=== PATIENT | female | born 1940 | race Caucasian/White ===

== ENCOUNTER 2017-01-10 17:03 | Inpatient (IN) | payer MEDICARE ==
[~2017-01-10] VITALS: Ht 165.1 cm; Wt 54.4 kg
[~2017-01-10 17:03] MED LIST: CARDURA8 MG PO; CATAPRES0.1 MG PO; CATAPRES0.2 MG PO; COREG25 MG PO; KLONOPIN0.5 MG PO; KLOR-CON M2020 MEQ PO; LASIX40 MG PO; OMEPRAZOLE20 M1 PO; ROBAXIN-750750 MG PO; TALWIN NX1 TAB PO; VITAMIN B-121000 MC3 PO; VITAMIN D31000 UNIT PO; XANAX0.5 MG PO; ZOCOR20 MG PO
[2017-01-10 18:20] LABS: BASOPHILS 0.2 % (0-2); EOSINOPHILS 0.1 % (0-7); HEMATOCRIT 48.5 % (36.0-48.0); HEMOGLOBIN 15.7 g/dL (12-16); IMMATURE GRANULOCYTES 0.2 % (0-5); LYMPHOCYTES 38.3 % (15-50); MCH 34.4 pg (26.0-34.0); MCHC 32.4 g/dL (31.0-37.0); MCV 106.1 fL (80.0-100.0); MEAN PLATELET VOLUME 10.7 fL (7.4-10.4); MONOCYTES 5.1 % (2-11); NEUTROPHILS 56.1 % (40-80); PLATELET COUNT 202 10x3/uL (130-400); RBC 4.57 10x6/uL (4.00-5.40); RDW 15.9 % (11.5-14.5); WBC 17.2 10x3/uL (4.8-10.8)
[2017-01-10 18:44] LABS: APPEARANCE CLOUDY (CLEAR); BILIRUBIN NEGATIVE (NEGATIVE); COLOR YELLOW (YELLOW); GLUCOSE NEGATIVE (NEGATIVE); KETONE NEGATIVE (NEGATIVE); LEUKOCYTE ESTERASE 2+ (NEGATIVE); NITRITE POSITIVE (NEGATIVE); PROTEIN 1+ mg/dL (NEGATIVE); SPECIFIC GRAVITY 1.015 (1.005-1.020); UROBILINOGEN NORMAL (NORMAL)
[2017-01-10 18:45] LABS: BACTERIA MANY /hpf (NONE SEEN); EPITHELIAL CELLS 0-5 /hpf (0-5); RED CELLS - URINE 0-5 /hpf (0-5); WHITE CELLS - URINE >50 /hpf (0-5)
[2017-01-10 19:11] LABS: ANION GAP 13.2 mmol/L (8-16); BILIRUBIN - TOTAL 0.5 mg/dL (0.2-1.3); CALCIUM 9.5 mg/dL (8.5-10.1); CARBON DIOXIDE 30.1 mmol/L (21.0-32.0); CREATININE - SERUM 2.9 mg/dL (0.6-1.3); POTASSIUM - SERUM 4.3 mmol/L (3.5-5.1); PROTEIN - SERUM 7.3 g/dL (6.4-8.2)
[2017-01-11 01:21] VITALS: BP 129/60
[2017-01-11 04:00] VITALS: BP 133/74
--- NOTE | 2017-01-11 07:30 | NUR ---
REPORT RECEIVED FROM SANDING MACHINE BUFFER NURSE. CALL LIGHT IN REACH.
--- NOTE | 2017-01-11 08:05 | NUR ---
ASSESSMENT COMPLETED. FAMILY IN ROOM. BED ALARM ON. CALL LIGHT IN REACH. WILL CONTINUE WITH PLAN OF CARE.
[2017-01-11 08:42] VITALS: BP 153/58
--- NOTE | 2017-01-11 09:31 | NUR ---
MERREM IVPB PER ORDER. REPOSITIONED FOR COMFORT. AT BEDSIDE. BED ALARM ON. CALL LIGHT IN REACH.
--- NOTE | 2017-01-11 11:20 | NUR ---
NO NEEDS VOICED AT THIS TIME. IN ROOM. CALL LIGHT IN REACH.
[2017-01-11 12:52] VITALS: BP 133/68
--- NOTE | 2017-01-11 13:30 | NUR ---
MED LIST OBTAINED FROM . WILL PUT IN COMPUTER.
[2017-01-11 13:40] VITALS: Ht 165.1 cm; Wt 54.4 kg
--- NOTE | 2017-01-11 15:42 | NUR ---
RESTING WITH EYES CLOSED. RESP EVEN AND UNLABORED. CALL LIGHT IN REACH.
[2017-01-11] MEDS ORDERED: XANAX0.5 MG PO (15:53)
[2017-01-11] MEDS ORDERED: CELEXA10 MG PO (15:54)
[2017-01-11] MEDS ORDERED: ZYLOPRIM300 MG PO (15:54)
[2017-01-11] MEDS ORDERED: VITAMIN B-12100 MCG PO (15:55)
[2017-01-11] MEDS ORDERED: ARICEPT10 MG PO (15:55)
[2017-01-11] MEDS ORDERED: TRIMETHOPRIM100 MG PO (15:57)
--- NOTE | 2017-01-11 16:23 | NUR ---
ESTRADA MARQUEZ, WAS IN ROOM TO SPEAK WITH PATIENT.
[2017-01-11 16:39] VITALS: BP 131/54
--- NOTE | 2017-01-11 18:10 | NUR ---
DR YUEN BY TO SEE PATIENT AND NEW ORDERS RECEIVED.
[2017-01-11 20:00] VITALS: BP 104/70
--- NOTE | 2017-01-11 20:00 | NUR ---
ASSESSMENT PER FLOWSHEET. IV PATENT LEFT AC OF NS AT 75CC'S/HR. DAUGHTER AT BEDSIDE. PT REMAINS CONFUSED. SR UP X2 CALL LIGHT WITHIN REACH BED ALARM BED ON. INC URINE COMPLETE LINENS CHANGE DONE. TELM SHOWS SR WITH HR 60'S.
--- NOTE | 2017-01-11 20:00 | NUR ---
ASSESSMENT PER FLOWSHEET. IV PATENT LEFT AC OF NS AT 75CC'S/HR. TELM. SHOWS SR HR IN THE 70'S.INC. URINE CLEANED AND DRIED. STAGE 1 IN COCCYX BUTT PASTE APPLIED.
--- NOTE | 2017-01-11 21:00 | NUR ---
MEDS GIVEN CRUSHED IN APPLESAUCE. PT'S IV BEEPING AND BEEPING RESITED IV TO LEFT WRIST #24G X2 ATTEMPTS. RESUMED IV FLUIDS LEFT LEFT AC IV IN PLACE AND SALINE LOCKED. DAUGHTER LEFT PT UNATTENDED TO GO GET SOME CANDY. PT PULLS OFF TELEMTRY AND PULLS OUT LEFT WRIST IV. CONNECTED IV TO LEFT AC SITE AND RESUMED IV FLUIDS.
[2017-01-12] VITALS: BP 170/77
--- NOTE | 2017-01-12 02:30 | NUR ---
INC URINE AND FECES.COMPLETE BED BATH WITH LINENS CHANGED.
--- NOTE | 2017-01-12 03:30 | NUR ---
EYES CLOSED RESPIRATIONS WITH EASE AND UNLABORED.
[2017-01-12 05:41] LABS: ANION GAP 10.5 mmol/L (8-16); CALCIUM 8.4 mg/dL (8.5-10.1); CARBON DIOXIDE 26.1 mmol/L (21.0-32.0)
[2017-01-12 05:46] LABS: BASOPHILS 0.2 % (0-2); IMMATURE GRANULOCYTES 0.4 % (0-5); LYMPHOCYTES 46.4 % (15-50); MCH 34.2 pg (26.0-34.0); MCHC 32.5 g/dL (31.0-37.0); MCV 105.1 fL (80.0-100.0); MEAN PLATELET VOLUME 11.1 fL (7.4-10.4); MONOCYTES 6.2 % (2-11); NEUTROPHILS 45.8 % (40-80); PLATELET COUNT 174 10x3/uL (130-400); RDW 15.6 % (11.5-14.5)
[2017-01-12 05:47] LABS: CREATININE - SERUM 1.1 mg/dL (0.6-1.3); POTASSIUM - SERUM 3.6 mmol/L (3.5-5.1)
[2017-01-12 05:59] LABS: HEMATOCRIT 37.2 % (36.0-48.0); HEMOGLOBIN 12.1 g/dL (12-16); RBC 3.54 10x6/uL (4.00-5.40); WBC 12.4 10x3/uL (4.8-10.8)
--- NOTE | 2017-01-12 06:00 | NUR ---
CRUSHED MEDS AND GIVEN IN APPLESAUCE.
--- NOTE | 2017-01-12 06:30 | NUR ---
PT PULLS OUT IV LINENS CHANGED.
--- NOTE | 2017-01-12 07:27 | NUR ---
REPORT RECEIVED FROM CODING QUALITY COORDINATOR NURSE. CALL LIGHT IN REACH.
--- NOTE | 2017-01-12 08:50 | NUR ---
ASSESSMENT COMPLETED. COREG CRUSHED AND ADMINISTERED WITH APPLESAUCE. FREIGHT CAR LOADER IN ROOM FEEDING PATIENT. ALSO AT BEDSIDE. BED ALARM IS ON. SCDs TO BLE. CALL LIGHT IN REACH. WILL CONTINUE WITH PLAN OF CARE. WILL ALSO START IV AND PLACE VIZCAINO CATHETER.
[2017-01-12 08:58] VITALS: BP 133/53
--- NOTE | 2017-01-12 09:05 | NUR ---
IV RESITED TO LEFT FOREARM WITH 22 GA X1 STICK. NEW BAG OF NS INITIATED AND IV ABX INFUSING. WILL INSERT VIZCAINO CATH WITH ASSISTANCE FROM MANAGER CREDIT RISK.
--- NOTE | 2017-01-12 11:00 | NUR ---
16 FR VIZCAINO CATH INSERTED USING STERILE TECHNIQUE WITH 300 CC MILKY URINE. SAMPLE COLLECTED AND SENT TO LAB FOR TESTS.
[2017-01-12 11:56] LABS: CREATININE - URINE 77.9 mg/dL (30-125); PROTEIN - URINE 654.9 mg/dL (0.0-11.9)
--- NOTE | 2017-01-12 13:34 | NUR ---
TINA IN [facility] WITH ASSISTANCE FROM . CALL LIGHT IN REACH.
--- NOTE | 2017-01-12 15:36 | NUR ---
PT HERE FOR LEFT FOOT WOUND AND CELLULITIS FOR THIS VISIT. PT AOX1 SELF. RESP EVEN AND NONLABORED PT DENIES NEEDS AT THIS TIME SRX2 BED AT LOWEST SETTING CALL LIGHT WITHIN REACH WILL CONTINUE TO MONITOR
[2017-01-12 17:46] VITALS: BP 170/63
[2017-01-12 20:00] VITALS: BP 126/72
[2017-01-13] VITALS: BP 139/79
[2017-01-13 04:00] VITALS: BP 169/61
[2017-01-13 05:39] LABS: BASOPHILS 0.2 % (0-2); HEMATOCRIT 37.6 % (36.0-48.0); IMMATURE GRANULOCYTES 0.7 % (0-5); LYMPHOCYTES 57.2 % (15-50); MCH 33.5 pg (26.0-34.0); MCHC 31.9 g/dL (31.0-37.0); MEAN PLATELET VOLUME 10.6 fL (7.4-10.4); MONOCYTES 6.1 % (2-11); NEUTROPHILS 33.8 % (40-80); PLATELET COUNT 180 10x3/uL (130-400); RBC 3.58 10x6/uL (4.00-5.40); RDW 15.7 % (11.5-14.5)
--- NOTE | 2017-01-13 05:54 | NUR ---
PATIENT IN BED WITH EYES CLOSED RESTING QUIETLY. IV INTACT. CALL LIGHT WITHIN REACH.
[2017-01-13 05:59] LABS: ANION GAP 12.3 mmol/L (8-16); CALCIUM 8.3 mg/dL (8.5-10.1); CARBON DIOXIDE 27.8 mmol/L (21.0-32.0); CREATININE - SERUM 0.9 mg/dL (0.6-1.3); POTASSIUM - SERUM 3.1 mmol/L (3.5-5.1)
--- NOTE | 2017-01-13 06:23 | NUR ---
REVIEWED LAB WORK AND PT'S K+ IS AT 3.1. MIXED 40MEQ OF K+ IN APPLE JUICE FOR PT TO CONSUME
--- NOTE | 2017-01-13 07:14 | NUR ---
REPORT RECEIVED FROM SENIOR MERCHANDISER NURSE. CALL LIGHT IN REACH.
--- NOTE | 2017-01-13 08:00 | NUR ---
LYING IN BED,WITHOUT DISTRESS.CALL LIGHT IN REACH
--- NOTE | 2017-01-13 08:22 | NUR ---
ASSESSMENT COMPLETED. AM MEDS ADMINISTERED. CALL LIGHT IN REACH. BED ALARM ON. WILL CONTINUE WITH PLAN OF CARE.
[2017-01-13 08:32] VITALS: BP 189/99
--- NOTE | 2017-01-13 10:38 | NUR ---
MANNY LEDESMA. DAUGHTER IN ROOM. CALL LIGHT IN REACH.
[2017-01-13 12:09] VITALS: BP 180/66
--- NOTE | 2017-01-13 12:33 | NUR ---
TINA SALGADO. FAMILY AT BEDSIDE. CALL LIGHT IN REACH.
--- NOTE | 2017-01-13 13:29 | NUR ---
NUTRITION F/U CHART REVIEWED, PT VISIT. FAMILY AT BEDSIDE. PT WITH 25 TO 50% INTAKE RECENT MEALS. WILL CONTINUE TO MONITOR INTAKE, PT PROGRESS. RD FOLLOWING
--- NOTE | 2017-01-13 13:47 | NUR ---
Patient Name: MELQUIADES ROMAN Admission Status: ER Accout number: [id number] Admission Date: 01-10-2017 : 1940 Admission Diagnosis:SEPSIS, UNSPECIFIED ORGANISM Attending: RITESH YUEN Current LOS: 3 Anticipated DC Date: Planned Disposition: Home Primary Insurance: [employer]ARE ADV Discharge Planning Comments: CM met with patient and daughter (October) to assess discharge planning needs. Patient currently lives at home with her and her daughter October where she is a partial dependent. She uses O2 at night, but the daughter could not think where she gets it from. Patient has a walker and a shower chair. Patient does not use HH at this time but would not be opposed to it when she goes home. CM will continue to follow and assist as needed. PCP: Trixie Melendez on [facility] [place] [phone] Supervisor [employer]: Nohemy Lee * Is the patient Alert and Oriented? Yes 0 * How many steps to enter\exit or inside your home? 5 0 * PCP trixie 0 * Pharmacy [facility] on 0 * Preadmission Environment Home with Family 0 * ADLs Partial Dependent 0 * Partial ADLs (Assistance needed) Ambulation Bathing Dressing Medication Management 0 * Equipment Oxygen Rolling Walker Shower Chair 0 * List name and contact numbers for known caregivers / representatives who currently or will assist patient after discharge: october (daughter) [phone] 0 * Additional services required to return to the preadmission environment? Yes 0 * Can the patient safely return to the preadmission environment? Yes 0 * Has this patient been hospitalized within the prior 30 days at any hospital? No 0 Grand Total: 0
--- NOTE | 2017-01-13 14:25 | NUR ---
RESTING WITH EYES CLOSED. RESP EVEN AND UNLABORED. CALL LIGHT IN REACH.
[2017-01-13] MEDS ORDERED: MACROBID100 MG PO (15:54)
--- NOTE | 2017-01-13 16:50 | NUR ---
IV DC'D WITH TIP INTACT. VIZCAINO CATH DC'D WITH TIP INTACT.
[2017-01-13] MEDS ORDERED: ATARAX 25 MG TA25 MG PO (16:55)
[2017-01-13] MEDS ORDERED: OMNICEF300 MG PO (16:55)
--- NOTE | 2017-01-13 18:37 | NUR ---
DC'D TO VEHICLE VIA WC WITH .
== END 2017-01-13 18:37 | disposition home or self-care (01) | DRG 872 ==
LOC: D.ER 17:03 → D.MS 22:14
PROVIDERS: Emergency Medicine; Internal Medicine Nephrology; ADMIT Family Medicine
DX: A41.9 Sepsis, unspecified organism (principal); N39.0 Urinary tract infection, site not specified; N17.9 Acute kidney failure, unspecified; I10 Essential (primary) hypertension; E86.0 Dehydration; J44.9 Chronic obstructive pulmonary disease, unspecified; F03.90 Unspecified dementia, unspecified severity, without behavioral disturbance, psychotic disturbance, mood disturbance, and anxiety; B96.20 Unspecified Escherichia coli [E. coli] as the cause of diseases classified elsewhere

== ENCOUNTER 2019-11-12 04:42 | Inpatient (IN) | payer MEDICARE ==
[2019-11-12] VITALS (7 sets, daily range): BP systolic 105–160; BP diastolic 57–78; BMI 23.1
[~2019-11-12] VITALS: Ht 165.1 cm; Wt 63.0 kg
[~2019-11-12 04:42] MED LIST changes: +ARICEPT10 MG PO; +ATARAX 25 MG TA25 MG PO; +CELEXA10 MG PO; +MACROBID100 MG PO; +OMNICEF300 MG PO; +TRIMETHOPRIM100 MG PO; +VITAMIN B-12100 MCG PO; +ZYLOPRIM300 MG PO
[2019-11-12] MEDS ORDERED: CARDURA8 MG PO (04:51)
[2019-11-12] MEDS ORDERED: TRAZODONE HCL150 MG PO (04:52)
[2019-11-12] MEDS ORDERED: K-TAB10 MEQ PO (04:52)
[2019-11-12 05:21] LABS: APTT 26.5 SECONDS (22.8-39.4); INR 0.99 (0.85-1.17); PROTIME 13.1 SECONDS (11.6-15.0)
[2019-11-12 05:36] LABS: BASOPHILS 0.3 % (0-2); EOSINOPHILS 2.8 % (0-7); HEMATOCRIT 36.7 % (36.0-48.0); HEMOGLOBIN 11.8 g/dL (12-16); IMMATURE GRANULOCYTES 0.2 % (0-5); LYMPHOCYTES 49.4 % (15-50); MCH 35.1 pg (26.0-34.0); MCHC 32.2 g/dL (31.0-37.0); MCV 109.2 fL (80.0-100.0); MEAN PLATELET VOLUME 10.2 fL (7.4-10.4); MONOCYTES 4.2 % (2-11); NEUTROPHILS 43.1 % (40-80); PLATELET COUNT 241 10x3/uL (130-400); RBC 3.36 10x6/uL (4.00-5.40); RDW 14.5 % (11.5-14.5); WBC 9.4 10x3/uL (4.8-10.8)
[2019-11-12 05:58] LABS: ALBUMIN 3.4 g/dL (3.4-5.0); ALKALINE PHOSPHATASE 74 U/L (30-120); ALT (SGPT) 19 U/L (10-68); BILIRUBIN - TOTAL 0.31 mg/dL (0.2-1.3); CALC OSMOLALITY 278 mosm/kg (275-300); CALCIUM 8.9 mg/dL (8.5-10.1); CARBON DIOXIDE 29.1 mmol/L (21.0-32.0); CHLORIDE - SERUM 102 mmol/L (98-107); CREATINE KINASE 97 UL (21-215); CREATININE - SERUM 1.5 mg/dL (0.6-1.3); GLUCOSE 116 mg/dL (74-106); POTASSIUM - SERUM 3.7 mmol/L (3.5-5.1); SODIUM 138 mmol/L (136-145); TROPONIN-I < 0.017 ng/mL (0.000-0.060); UREA NITROGEN 17 mg/dL (7-18); eGFR NON AFRICAN AMERICAN 35 mL/min (90-120)
[2019-11-12 06:34] LABS: BILIRUBIN NEGATIVE (NEGATIVE); GLUCOSE NEGATIVE (NEGATIVE); KETONE NEGATIVE (NEGATIVE); NITRITE NEGATIVE (NEGATIVE); SPECIFIC GRAVITY 1.005 (1.005-1.020); UROBILINOGEN NORMAL (NORMAL)
[2019-11-12 06:35] LABS: EPITHELIAL CELLS 0-5 /hpf (0-5); RED CELLS - URINE 0-5 /hpf (0-5); WHITE CELLS - URINE >50 /hpf (NEGATIVE)
[2019-11-12 06:36] LABS: BACTERIA MANY /hpf (NEGATIVE)
--- NOTE | 2019-11-12 06:43 | NUR ---
c-COLLAR REMOVED PER MD ORDER, C-SPINE IS NORMAL
--- NOTE | 2019-11-12 06:53 | NUR ---
REPORT GIVEN TO CHON
--- NOTE | 2019-11-12 08:06 | NUR ---
PATIENT ADMITTED TO ROOM 2236. ADMISSION COMPLETE. DAUGHTER AT BEDSIDE. FALL PRECAUTIONS IN PLACE. WILL CONTINUE TO MONITOR.
--- NOTE | 2019-11-12 12:17 | NUR ---
RESTING IN BED. DENIES NEEDS. WILL CONTINUE TO MONITOR.
--- NOTE | 2019-11-12 12:40 | NUR ---
PATIENT'S DAUGHTER GOT DRIED BLOOD OFF PATIENT'S LEFT EAR WITH WASH CLOTH. PATIENT'S EAR NOW BLEEDING. SMALL CUT NOTED TO EAR. CLEANED AND CLOSED WITH SMALL STERI STRIP.
--- NOTE | 2019-11-12 20:15 | NUR ---
TO SURGERY VIA BED
--- NOTE | 2019-11-12 21:59 | NUR ---
WHEN POSITIONED ON HANA TABLE X-RAYS REVEALED HIGHER FRACTURE, IM NAILING TURNED HEMIARTHROPLASTY OF LEFT HIP, DR MORGAN TALKED TO PATIENTS FAMILY AND OBTAINED CONSENT, ANUSHA.
--- NOTE | 2019-11-12 23:35 | NUR ---
BACK FROM SURGERY, AROUSES EASILY, DRESSIGN TO LEFT UPPER THIGH C/D/I, GOOD PEDAL PULSES NOTED, DAUGHTER AT BEDSIDE, CALL LIGHT IN REACH
[2019-11-13 05:25] VITALS: BP 109/58
--- NOTE | 2019-11-13 07:17 | OP ---
PATIENT NAME: MELQUIADES ESPOSITO MEDICAL RECORD: [id number] :40 LOCATION:D.MS [id number] ADMISSION DATE:11/12/19 SURGEON: CUONG MORGAN DO DATE OF OPERATION: 11/12/2019 PROCEDURE PERFORMED: Left stewart hip arthroplasty. PREOPERATIVE DIAGNOSIS: Left femoral neck fracture. POSTOPERATIVE DIAGNOSIS: Left femoral neck fracture. INDICATIONS: Ms. Esposito is a 79-year-old demented female who showed up at the ER this morning, initially with x-rays taken that initially, we thought that it was an intertrochanteric fracture, planned to do an IM nail. Once I got her on the table and tried to reduce the fracture, I saw the femoral neck fracture. I then called her daughter and informed that we will be changing the procedure and do a stewart hip. She was okay with that. She was aware of the risks including infection, bleeding, damage to nerves, vessels, need for further surgery, fracture, fracture, continued pain, blood clots, even , failure of implants and her daughter had signed the consent. SURGEON: Cuong Morgan DO DESCRIPTION OF PROCEDURE: The patient was taken to the operative suite, laid in supine position, given anesthetic and sedated and intubated. She was then given a gram of vancomycin preoperatively and 1 gram of TXA. SHE HAS SEVERAL ALLERGIES. She was then placed on the [place] table and positioned and the left hip was prepped and draped in sterile fashion. A timeout was performed and everyone was in agreeance with correct side, site, patient and procedure and at that point, made an incision over the tensor fascia shanel muscle. Careful dissection was made down to the muscle and fascia, taken down to anterior muscle belly posteriorly, then we opened up rectus interval. The rectus was then taken medially and then tensor fascia shanel laterally and encountered the ascending branch of lateral femoral circumflex, tied them off and coagulated them. I then opened the capsule and the femoral neck that was there. It was more of a mid neck fracture and I then made another cut at the base of the femoral neck and then removed that and removed the head then cleaned up around the capsule. I then exposed the femur, used a canal finder and a cookie cutter. I then started broaching up to a 10. 10, I thought, fit well, but it was a little loose. I then broached to 11, it fit very well and then reduced it with a -6, we need to bring out a little bit longer and decided to go a standard head, removed the 11 stem, put in the 11 Taperloc stem down, fit very well and snugly and then put a bipolar head on with the standard neck length. This was reduced and fit very well and no fracture is seen in the femur distally and had equal leg lengths to the right leg. I then irrigated with 10% povidone iodine and 500 mL of normal saline solution and irrigated that out with a liter of normal saline and then put in Jayla powder and vancomycin powder. I then closed the tensor fascia shanel fascia with [id number] #1 Vicryl in a running locking stitch. I then closed the skin with 2-0 Vicryl in inverted interrupted fashion and 4-0 Monocryl running on the skin and Prineo glue placed on the skin. Telfa and Tegaderm was placed on the skin and she was then awakened and taken to recovery in stable condition. Blood loss approximately 100 mL. COMPLICATIONS: None. OPERATIVE REPORT [id number] MELQUIADES ESPOSITO TRANSINT:[id number] Voice Confirmation ID: [id number] DOCUMENT ID: [id number] CUONG MORGAN DO at 0717 CC: [id number] DICTATION DATE: 11/12/19 2256 HONEY LIQUEFIER: 11/13/19 0431 ADM IN [facility] [address] [place] [address]
[2019-11-13 07:41] VITALS: BP 143/58
--- NOTE | 2019-11-13 07:46 | NUR ---
ALERT AND ORIENTED TO SELF. LUNGS CLEAR BILATERALLY. HEART SOUNDS S1 AND S2 HEARD IN ALL SCOTT. BOWEL SOUNDS ACTIVE X 4. IV TO RIGHT HAND PATENT WITHOUT REDNESS. DRSG TO LEFT HIP C/D/I. DENIES NEEDS. BED LOW. BED ALARM ON. DAUGHTER AT BEDSIDE. CALL COOK AND PERSONAL ITEMS IN REACH. WILL CONTINUE TO MONITOR.
[2019-11-13 10:33] LABS: BASOPHILS 0 % (0-2); EOSINOPHILS 0 % (0-7); HEMATOCRIT 29.8 % (36.0-48.0); IMMATURE GRANULOCYTES 0.3 % (0-5); LYMPHOCYTES 16.2 % (15-50); MCH 35.1 pg (26.0-34.0); MCHC 31.5 g/dL (31.0-37.0); MEAN PLATELET VOLUME 10.1 fL (7.4-10.4); MONOCYTES 4.4 % (2-11); NEUTROPHILS 79.1 % (40-80); PLATELET COUNT 202 10x3/uL (130-400); RDW 14.7 % (11.5-14.5); WBC 11.5 10x3/uL (4.8-10.8)
[2019-11-13 10:44] LABS: HEMOGLOBIN 9.4 g/dL (12-16); MCV 111.2 fL (80.0-100.0); RBC 2.68 10x6/uL (4.00-5.40)
[2019-11-13 10:48] LABS: ALBUMIN 2.8 g/dL (3.4-5.0); BILIRUBIN - TOTAL 0.43 mg/dL (0.2-1.3); CARBON DIOXIDE 26.5 mmol/L (21.0-32.0); PHOSPHOROUS 3.2 mg/dL (2.5-4.9); PROTEIN - SERUM 5.6 g/dL (6.4-8.2)
[2019-11-13 10:49] LABS: CREATININE - SERUM 1.1 mg/dL (0.6-1.3); POTASSIUM - SERUM 4.5 mmol/L (3.5-5.1)
[2019-11-13 12:42] VITALS: BP 102/43
[2019-11-13 14:42] VITALS: Ht 165.1 cm; Wt 63.0 kg
[2019-11-13 16:00] VITALS: BP 106/45
--- NOTE | 2019-11-13 18:04 | NUR ---
RESTING IN BED. FAMILY MEMBER AT BEDSIDE. DENIES NEEDS. WILL CONTINUE TO MONITOR.
[2019-11-13 20:00] VITALS: BP 102/75
--- NOTE | 2019-11-13 20:45 | NUR ---
LYING IN BED. CONFUSED, ORIENTED TO SELF ONLY. VISUAL HALLUCINATIONS NOTED, PT PICKING AT AIR. DAUGHTER AT BEDSIDE. RESP EVEN AND NONLABORED. TELEMETRY SHOWS SR WITH RATE OF 61. VIZCAINO CATH PATENT AND DRAINING CLOUDY YELLOW URINE. LACERATION NOTED TO LT EAR AND LT FOREHEAD. SCDS IN USE BILAT. DRSG TO LT HIP IS C/D/I. 1/2 NS @ 75 MLHR INFUSING IN RT HAND. SR ELEVATEDX 2. CL IN REACH.
--- NOTE | 2019-11-13 21:45 | NUR ---
MEDICATED WITH TYLENOL FOR C/O PAIN IN LT HIP. CL IN REACH.
--- NOTE | 2019-11-14 02:00 | NUR ---
REPOSITIONED IN BED. DAUGHTER AT BEDSIDE. PT STILL CONFUSED. BED ALARM ON. CL IN REACH.
[2019-11-14 04:00] VITALS: BP 128/60
[2019-11-14 06:20] LABS: BASOPHILS 0.1 % (0-2); EOSINOPHILS 0.2 % (0-7); HEMATOCRIT 26.9 % (36.0-48.0); HEMOGLOBIN 8.3 g/dL (12-16); IMMATURE GRANULOCYTES 0.2 % (0-5); LYMPHOCYTES 38.7 % (15-50); MCH 34.7 pg (26.0-34.0); MCHC 30.9 g/dL (31.0-37.0); MCV 112.6 fL (80.0-100.0); MEAN PLATELET VOLUME 10.3 fL (7.4-10.4); MONOCYTES 7.2 % (2-11); NEUTROPHILS 53.6 % (40-80); PLATELET COUNT 178 10x3/uL (130-400); RBC 2.39 10x6/uL (4.00-5.40); RDW 14.7 % (11.5-14.5)
[2019-11-14 06:26] LABS: ANION GAP 12.1 mmol/L (8-16); CALCIUM 7.4 mg/dL (8.5-10.1); CARBON DIOXIDE 26.3 mmol/L (21.0-32.0); MAGNESIUM - SERUM 1.9 mg/dL (1.8-2.4); PHOSPHOROUS 3.4 mg/dL (2.5-4.9); POTASSIUM - SERUM 4.4 mmol/L (3.5-5.1)
[2019-11-14 06:27] LABS: CREATININE - SERUM 1.5 mg/dL (0.6-1.3)
--- NOTE | 2019-11-14 07:52 | NUR ---
ALERT AND ORIENTED TO SELF. LUNGS CLEAR BILATERALLY. HEART SOUNDS S1 AND S2 HEARD IN ALL SCOTT. BOWEL SOUNDS ACTIVE X 4. DRSG TO LEFT HIP C/D/I. IV TO RIGHT HAND PATENT WITHOUT REDNESS. DAUGHTER AT BEDSIDE DENIES NEEDS. BED LOW. FALL PRECAUTIONS IN PLACE. CALL COOK AND PERSONAL ITEMS IN REACH. WILL CONTINUE TO MONITOR.
[2019-11-14 09:15] VITALS: BP 117/48
--- NOTE | 2019-11-14 10:07 | NUR ---
DAUGHTER STATES PATIENT CANNOT HAVE TYLENOL#3 D/T ALLERGY TO CODEINE. MESSAGE LEFT FOR DR MORGAN TO CALL BACK.
--- NOTE | 2019-11-14 11:41 | NUR ---
PATIENT SLEEPING. WILL CONTINUE TO MONITOR.
[2019-11-14 12:36] VITALS: BP 108/52
[2019-11-14 17:01] VITALS: BP 123/57
[2019-11-14 20:00] VITALS: BP 120/50
--- NOTE | 2019-11-14 20:50 | NUR ---
LYING IN BED. CONFUSED. PICKING AT LINES. DAUGHTER AT BEDSIDE. RESTLESS. DRSG NOTED TO LT HIP IS C/D/I. BRUISES NOTED TO LT FOREHEAD, LT SHOULDER AND LT HIP. VIZCAINO CATH PATENT AND DRAINING CLOUDY YELLOW URINE. TELEMETRY SHOWS SR WITH RATE OF 67 WITH OCC PVC. 1/2 NS @ 30 MLHR INFUSING IN RT HAND. SCDS IN USE BILAT. SR ELEVATED X2. CL IN REACH. ROGERIO ALARM ON.
--- NOTE | 2019-11-15 01:03 | NUR ---
LYING IN BED WITH EYES PARTIALLY OPEN. HAS BEEN RESTLESS TONIGHT. NO DISTRESS. RESP NONLABORED. O2 IN USE. CL IN REACH. ROGERIO ALARM ON.
--- NOTE | 2019-11-15 03:53 | NUR ---
RESTING WITH EYES CLOSED. RESP SHALLOW, NONLABORED. NO DISTRESS. CL IN REACH.
[2019-11-15 04:00] VITALS: BP 121/58
[2019-11-15 05:47] LABS: HEMATOCRIT 24.4 % (36.0-48.0); HEMOGLOBIN 7.7 g/dL (12-16); MCH 35.2 pg (26.0-34.0); MCHC 31.6 g/dL (31.0-37.0); MCV 111.4 fL (80.0-100.0); MEAN PLATELET VOLUME 10.6 fL (7.4-10.4); PLATELET COUNT 172 10x3/uL (130-400); RBC 2.19 10x6/uL (4.00-5.40); RDW 14.9 % (11.5-14.5); WBC 10.9 10x3/uL (4.8-10.8)
[2019-11-15 05:56] LABS: ANION GAP 10.1 mmol/L (8-16); CALCIUM 8.2 mg/dL (8.5-10.1); CARBON DIOXIDE 27.2 mmol/L (21.0-32.0); CREATININE - SERUM 1.6 mg/dL (0.6-1.3); PHOSPHOROUS 3.4 mg/dL (2.5-4.9); POTASSIUM - SERUM 4.3 mmol/L (3.5-5.1)
--- NOTE | 2019-11-15 06:15 | NUR ---
RESTED BETTER THIS SHIFT. DAUGHTER AT BEDSIDE. NO DISTRESS. CL IN REACH.
[2019-11-15 06:56] LABS: ANISOCYTOSIS OCC; LYMPHOCYTES 33 % (15-50); MONOCYTES 2 % (2-11); NEUTROPHILS 65 % (40-80); PLATELET ESTIMATE NORMAL
[2019-11-15 06:57] LABS: TARGET CELLS OCC
[2019-11-15 09:13] VITALS: BP 110/38
--- NOTE | 2019-11-15 10:34 | NUR ---
PT DAUGHTER AT BEDSIDE. REQUESTING WE CONTINUE TO LET PT SLEEP AND HOLD MEDS FOR NOW. CONCERNED ABOUT PT BP. RETAKEN AND NEW READING IS 86/53. WILL CONTINUE TO MONITOR.
[2019-11-15 11:47] VITALS: BP 151/56
[2019-11-15 15:42] VITALS: BP 153/51
--- NOTE | 2019-11-15 16:08 | NUR ---
Nutrition Follow-up: Diet: Regular PO intake: 25-50% x last 3 meals Last BM: none since admit. WT: 139# (11/13/19) Meds noted: NS@75. Labs noted: BUN 29(H), Cr 1.6(H), GFR 33(L) Continue current diet. Will add Ensure TID with meals. RD following.
--- NOTE | 2019-11-15 18:43 | NUR ---
PRBC'S STARTED WITH NO S/S OF REACTION NOTED
[2019-11-15 20:00] VITALS: BP 101/51
[2019-11-16] VITALS: BP 145/40
[2019-11-16 04:00] VITALS: BP 185/64
[2019-11-16 06:33] LABS: BASOPHILS 0.2 % (0-2); EOSINOPHILS 0.7 % (0-7); HEMATOCRIT 28.5 % (36.0-48.0); HEMOGLOBIN 8.9 g/dL (12-16); IMMATURE GRANULOCYTES 0.3 % (0-5); LYMPHOCYTES 40.7 % (15-50); MCH 32.8 pg (26.0-34.0); MCHC 31.2 g/dL (31.0-37.0); MEAN PLATELET VOLUME 10.1 fL (7.4-10.4); MONOCYTES 7.2 % (2-11); NEUTROPHILS 50.9 % (40-80); PLATELET COUNT 174 10x3/uL (130-400); RDW 19.5 % (11.5-14.5); WBC 11.3 10x3/uL (4.8-10.8)
[2019-11-16 06:34] LABS: MCV 105.2 fL (80.0-100.0); RBC 2.71 10x6/uL (4.00-5.40)
[2019-11-16 06:57] LABS: CALCIUM 7.8 mg/dL (8.5-10.1); CARBON DIOXIDE 27.2 mmol/L (21.0-32.0); CREATININE - SERUM 1.3 mg/dL (0.6-1.3); PHOSPHOROUS 2.8 mg/dL (2.5-4.9); POTASSIUM - SERUM 4.2 mmol/L (3.5-5.1); VANCOMYCIN - RANDOM 20.5 ug/mL (10.0-20.0)
[2019-11-16 09:16] VITALS: BP 118/48
[2019-11-16] MEDS ORDERED: PRIMSOL50 MG/5 ML PO (11:15)
[2019-11-16 13:17] VITALS: BP 141/57
--- NOTE | 2019-11-16 16:40 | MORECARE ---
CASE MANAGEMENT DISCHARGE SUMMARY PATIENT: MELQUIADES ROMAN S UNIT: [id number] ADM DATE: 11/12/19 AGE: 79 : 40 SEX: F ROOM/BED: D.2236 AUTHOR: MEGHAN WONG PHYSICIAN: REFERRING PHYSICIAN: GULSHAN GONCALVES MD DATE OF SERVICE: 11/16/19 Discharge Plan Patient Name: MELQUIADES ROMAN [facility] [facility] 1940 Planned Disposition: Home with Hospice Anticipated Discharge Date: Discharge Date: Expected LOS: Initial Reviewer: [email or web address] Initial Review Date: 11/12/2019 Generated: 11/16/19 5:39 pm DCPIA - Discharge Planning Initial Assessment Updated by [email or web address]: Lara Robertson on 11/16/19 4:38 pm * Is the patient Alert and Oriented? No * PCP SORRELS * Pharmacy [facility] * Preadmission Environment Home with Family * ADLs Partial Dependent * Partial ADLs (Assistance needed) Ambulation Bathing Dressing Eating Medication Management Toileting Transfers * List name and contact numbers for known caregivers / representatives who currently or will assist patient after discharge: LEELEE ASH - DAUGHTER - [phone] TARA ROMAN - SPOUSE - [phone] * Verbal permission to speak to the caregivers and representatives has been obtained from the patient. Yes * Community resources currently utilized None * Additional services required to return to the preadmission environment? No * Can the patient safely return to the preadmission environment? Yes * Has this patient been hospitalized within the prior 30 days at any hospital? No Patient Name: MELQUIADES ROMAN Page [id number] at 1640 All edits/amendments must be made on the electronic document DICTATION DATE: 11/16/19 1639 CHIEF LIBRARIAN BRANCH: MIKAYLA 11/16/19 1639 RPT#: [id number] DC DATE: STATUS: ADM IN [facility] [address] [place] [address] END OF REPORT
[2019-11-16 16:50] VITALS: BP 110/64; BP 141/59
--- NOTE | 2019-11-16 16:52 | MORECARE ---
CASE MANAGEMENT DISCHARGE SUMMARY PATIENT: MELQUIADES ROMAN UNIT: [id number] ADM DATE: 11/12/19 AGE: 79 : 40 SEX: F ROOM/BED: D.2236 AUTHOR: MARVINDOC PHYSICIAN: REFERRING PHYSICIAN: GULSHAN GONCALVES MD DATE OF SERVICE: 11/16/19 Discharge Plan Patient Name: MELQUIADES ROMAN Facility: [facility]:[place] : 1940 Planned Disposition: Home with Hospice Anticipated Discharge Date: Discharge Date: Expected LOS: Initial Reviewer: [email or web address] Initial Review Date: 11/12/2019 Generated: 11/16/19 5:52 pm Comments DCP- Discharge Planning Updated by [email or web address]: Lara Robertson on 11/16/19 3:[address] Patient Name: MELQUIADES ROMAN Admission Status: ER Accout number: [id number] Admission Date: 11-12-2019 : 1940 Admission Diagnosis:DISPLACED INTERTROCHANTERIC FRACTURE OF LEFT FEMUR, INI Attending: GULSHAN GONCALVES Current LOS: 4 Anticipated DC Date: Planned Disposition: Home with Hospice Primary Insurance: [employer] ADV Discharge Planning Comments: CM met with patient's daughter at bedside to complete initial dc planning assessment. CM educated patient on the CM role and verbal consent given by patient to complete assessment. Patient lives at home with family. Patient's spouse and two daughters live with her. Patient was partially dependent upon admission was able to ambulate but with her dementia had to have assistance with other ADL'S. At discharge patient's family plans for her to return home and feels this is a safe discharge. CM discussed availability of home health, rehab services, and medical equipment. CM spoke to daughter regarding hospice v/s home health. Daughter stated that her father was speaking to the insurance company to see what they can provide / what is covered. Family doesn't want patient to go to any facility that they can not stay with her. Patient may require ambulance transfer home since she isn't getting up. Uncertain of known discharge needs at this time. CM will continue to follow and will assist as needed with dc plans/needs. Vocational Nurse: Lara Robertson DCPIA - Discharge Planning Initial Assessment Updated by [id number]: Lara Robertson on 11/16/19 4:38 pm * Is the patient Alert and Oriented? No * PCP SORRELS * Pharmacy [facility] * Preadmission Environment Home with Family * ADLs Partial Dependent * Partial ADLs (Assistance needed) Ambulation Bathing Dressing Eating Medication Management Toileting Transfers * List name and contact numbers for known caregivers / representatives who currently or will assist patient after discharge: LEELEE ASH - DAUGHTER - [phone] TARA ROMAN - SPOUSE - [phone] * Verbal permission to speak to the caregivers and representatives has been obtained from the patient. Yes * Community resources currently utilized None * Additional services required to return to the preadmission environment? No * Can the patient safely return to the preadmission environment? Yes * Has this patient been hospitalized within the prior 30 days at any hospital? No Last DP export: 11/16/19 3:40 pm Patient Name: MELQUIADES ROMAN Page [id number] at 1652 All edits/amendments must be made on the electronic document DICTATION DATE: 11/16/191651 NC MACHINIST: MIKAYLA 11/16/191651 RPT#: [id number] DC DATE: STATUS: ADM IN [facility] [address] [place] [address] END OF REPORT
[2019-11-16 20:00] VITALS: BP 197/59
[2019-11-17] VITALS: BP 154/47
[2019-11-17 04:00] VITALS: BP 142/54
[2019-11-17 06:52] LABS: BASOPHILS 0.2 % (0-2); HEMATOCRIT 29.9 % (36.0-48.0); HEMOGLOBIN 9.4 g/dL (12-16); IMMATURE GRANULOCYTES 0.4 % (0-5); LYMPHOCYTES 39.4 % (15-50); MCH 33.2 pg (26.0-34.0); MCHC 31.4 g/dL (31.0-37.0); MCV 105.7 fL (80.0-100.0); MEAN PLATELET VOLUME 10.5 fL (7.4-10.4); MONOCYTES 7.6 % (2-11); NEUTROPHILS 51.4 % (40-80); PLATELET COUNT 201 10x3/uL (130-400); RBC 2.83 10x6/uL (4.00-5.40); RDW 18.4 % (11.5-14.5); WBC 10.5 10x3/uL (4.8-10.8)
[2019-11-17 06:56] LABS: ANION GAP 7.9 mmol/L (8-16); CARBON DIOXIDE 27.1 mmol/L (21.0-32.0); CREATININE - SERUM 1.3 mg/dL (0.6-1.3); MAGNESIUM - SERUM 2.1 mg/dL (1.8-2.4); PHOSPHOROUS 2.8 mg/dL (2.5-4.9)
[2019-11-17 09:02] VITALS: BP 132/46
--- NOTE | 2019-11-17 09:06 | NUR ---
PT CONFUSED. BREATH SOUNDS CLEAR BILAT. IV TO RIGHT HAND, PATENT, DRESSING CDI. DRESSING TO LEFT HIP. DAUGHTER AT BEDSIDE. BED LOW, CALL LIGHT IN REACH. NO OTHER NEEDS AT THIS TIME.
[2019-11-17 12:41] VITALS: BP 157/56
[2019-11-17 17:09] VITALS: BP 152/47
[2019-11-17 21:20] VITALS: BP 149/37
[2019-11-18 04:00] VITALS: BP 161/56
[2019-11-18 05:05] LABS: BASOPHILS 0.3 % (0-2); EOSINOPHILS 0.7 % (0-7); HEMOGLOBIN 9.1 g/dL (12-16); IMMATURE GRANULOCYTES 0.5 % (0-5); LYMPHOCYTES 42.4 % (15-50); MCH 33.1 pg (26.0-34.0); MCHC 31.4 g/dL (31.0-37.0); MCV 105.5 fL (80.0-100.0); MEAN PLATELET VOLUME 10.8 fL (7.4-10.4); MONOCYTES 7.5 % (2-11); NEUTROPHILS 48.6 % (40-80); PLATELET COUNT 214 10x3/uL (130-400); RBC 2.75 10x6/uL (4.00-5.40); RDW 17.6 % (11.5-14.5)
[2019-11-18 05:25] LABS: ANION GAP 10.9 mmol/L (8-16); CALCIUM 8.1 mg/dL (8.5-10.1); CARBON DIOXIDE 27.5 mmol/L (21.0-32.0); CREATININE - SERUM 1.2 mg/dL (0.6-1.3); MAGNESIUM - SERUM 2.2 mg/dL (1.8-2.4); POTASSIUM - SERUM 4.4 mmol/L (3.5-5.1); VANCOMYCIN - RANDOM 24.9 ug/mL (10.0-20.0)
[2019-11-18 05:35] LABS: PHOSPHOROUS 3.7 mg/dL (2.5-4.9)
--- NOTE | 2019-11-18 08:07 | NUR ---
ALERT AND ORIENTED TO SELF. LUNGS CLEAR BILATERALLY. HEART SOUNDS S1 AND S2 HEARD IN ALL SCOTT. BOWEL SOUNDS ACTIVE X 4. IV TO RFA PATENT WITHOUT REDNESS. BED LOW. FALL PRECAUTIONS IN PLACE. CALL COOK AND PERSONAL ITEMS IN REACH. WILL CONTINUE TO MONITOR.
[2019-11-18 09:12] VITALS: BP 152/51
--- NOTE | 2019-11-18 09:49 | NUR ---
DRSG CHANGED TO LEFT HIP. SURGICAL SITE C/D/I WITH NO S/SX INFECTION OR REDNESS. MEPILEX AG APPLIED.
--- NOTE | 2019-11-18 11:36 | NUR ---
Rehab Prescreening Consult recieved and the chart has been reviewed. She is [employer] managed Medicare and will require a preauth. She will need a PT and an OT eval. Currently the [facility] has no available female beds. Gianna Sherman RN Clinical Liaison, Rehab,
[2019-11-18 12:38] VITALS: BP 139/64
--- NOTE | 2019-11-18 13:05 | NUR ---
PATIENT SLEEPING. DAUGHTER AT BEDSIDE DENIES NEEDS. WILL CONTINUE TO MONITOR.
--- NOTE | 2019-11-18 13:40 | NUR ---
PATIENT LAURA AREA CLEANED AND NEW PUREWICK PLACED ON PATIENT.
--- NOTE | 2019-11-18 15:01 | NUR ---
OT NOTE: PT REQUIRED MOD/MAX A FOR SIT TO STAND . PT COMPLETED SIDE STEPS WITH MOD/MAX X2. PT COMPLETED UB/LB HYGIENE TASKS WITH MAX A. PT IS CONFUSED. [id number] THANK YOU,NIALL WYNNE
--- NOTE | 2019-11-18 16:46 | MORECARE ---
CASE MANAGEMENT DISCHARGE SUMMARY PATIENT: MELQUIADES ROMAN UNIT: [id number] ADM DATE: 11/12/19 AGE: 79 : 40 SEX: F ROOM/BED: D.2236 AUTHOR: MARVIN,DOC PHYSICIAN: REFERRING PHYSICIAN: GULSHAN GONCALVES MD DATE OF SERVICE: 11/18/19 Discharge Plan Patient Name: MELQUIADES ROMAN Facility: [facility]:[place] : 1940 Planned Disposition: Home with Hospice Anticipated Discharge Date: Discharge Date: Expected LOS: Initial Reviewer: [email or web address] Initial Review Date: 11/12/2019 Generated: 11/18/19 5:46 pm Comments DCP- Discharge Planning Updated by [email or web address]: Beena Randle on 11/18/19 3:[address] Patient Name: MELQUIADES ROMAN Admission Status: ER Accout number: [id number] Admission Date: 11-12-2019 : 1940 Admission Diagnosis:DISPLACED INTERTROCHANTERIC FRACTURE OF LEFT FEMUR, INI Attending: GULSHAN GONCALVES Current LOS: 6 Anticipated DC Date: Planned Disposition: Home with Hospice Primary Insurance: [employer]ARE ADV Discharge Planning Comments: CM MET WITH PATIENT'S DAUGHTER AND . THEY WOULD LIKE [facility] IF ONE OF THEM COULD STAY WITH HER 05/12. I TOLD THEM I DIDN'T THINK THEY COULD STAY 24 HRS. A DAY BUT I WOULD CHECK WITH [facility]. SPOKE WITH AHMET AND ROOMS ARE SEMI PRIVATE THEREFORE NO OVERNIGHT STAYS. THEY DO HAVE VISITING HOURS THROUGHOUT THE DAY. I WILL CONTACT FAMILY TO LET THEM KNOW AND SEE THE NEXT PLAN. Regional Dedicated Truck Driver: Beena Randle DCP- Discharge Planning Updated by [id number]: Lara Robertson on 11/16/19 3:[address] Patient Name: MELQUIADES ROMAN Admission Status: ER Accout number: [id number] Admission Date: 11-12-2019 : 1940 Admission Diagnosis:DISPLACED INTERTROCHANTERIC FRACTURE OF LEFT FEMUR, INI Attending: GULSHAN GONCALVES Current LOS: 4 Anticipated DC Date: Planned Disposition: Home with Hospice Primary Insurance: [employer] ADV Discharge Planning Comments: CM met with patient's daughter at bedside to complete initial dc planning assessment. CM educated patient on the CM role and verbal consent given by patient to complete assessment. Patient lives at home with family. Patient's spouse and two daughters live with her. Patient was partially dependent upon admission was able to ambulate but with her dementia had to have assistance with other ADL'S. At discharge patient's family plans for her to return home and feels this is a safe discharge. CM discussed availability of home health, rehab services, and medical equipment. CM spoke to daughter regarding hospice v/s home health. Daughter stated that her father was speaking to the insurance company to see what they can provide / what is covered. Family doesn't want patient to go to any facility that they can not stay with her. Patient may require ambulance transfer home since she isn't getting up. Uncertain of known discharge needs at this time. CM will continue to follow and will assist as needed with dc plans/needs. Regional Dedicated Truck Driver: Lara Robertson DCPIA - Discharge Planning Initial Assessment Updated by [email or web address]: Lara Robertson on 11/16/19 4:38 pm * Is the patient Alert and Oriented? No * PCP SORRELS * Pharmacy [facility] * Preadmission Environment Home with Family * ADLs Partial Dependent * Partial ADLs (Assistance needed) Ambulation Bathing Dressing Eating Medication Management Toileting Transfers * List name and contact numbers for known caregivers / representatives who currently or will assist patient after discharge: LEELEE ASH - DAUGHTER - [phone] TARA ROMAN - SPOUSE - [phone] * Verbal permission to speak to the caregivers and representatives has been obtained from the patient. Yes * Community resources currently utilized None * Additional services required to return to the preadmission environment? No * Can the patient safely return to the preadmission environment? Yes * Has this patient been hospitalized within the prior 30 days at any hospital? No Last DP export: 11/16/19 3:52 pm Patient Name: MELQUIADES ROMAN Page [id number] at 1646 All edits/amendments must be made on the electronic document DICTATION DATE: 11/18/191645 PATIENT RELATIONS SPECIALIST: MIKAYLA 11/18/191645 RPT#: [id number] DC DATE: STATUS: ADM IN [facility] [address] [place] [address] END OF REPORT
--- NOTE | 2019-11-18 17:59 | MORECARE ---
CASE MANAGEMENT DISCHARGE SUMMARY PATIENT: MELQUIADES ROMAN UNIT: [id number] ADM DATE: 11/12/19 AGE: 79 : 40 SEX: F ROOM/BED: D.2236 AUTHOR: MARVIN,DOC PHYSICIAN: REFERRING PHYSICIAN: GULSHAN GONCALVES MD DATE OF SERVICE: 11/18/19 Discharge Plan Patient Name: MELQUIADES ROMAN Facility: [facility]:[place] : 1940 Planned Disposition: Home with Hospice Anticipated Discharge Date: Discharge Date: Expected LOS: Initial Reviewer: [email or web address] Initial Review Date: 11/12/2019 Generated: 11/18/19 6:59 pm Comments DCP- Discharge Planning Updated by [id number]: Beena Randle on 11/18/19 4:[address] Patient Name: MELQUIADES ROMAN Admission Status: ER Accout number: [id number] Admission Date: 11-12-2019 : 1940 Admission Diagnosis:DISPLACED INTERTROCHANTERIC FRACTURE OF LEFT FEMUR, INI Attending: GULSHAN GONCALVES Current LOS: 6 Anticipated DC Date: Planned Disposition: Home with Hospice Primary Insurance: [employer] MEDICARE ADV Discharge Planning Comments: FAMILY WOULD LIKE PATIENT TO GET A LITTLE STRONGER AND WHEN MEDICALLY STABLE DC TO HOME. THEY DO NOT WANT HH OR SNF AND WILL ONLY AGREE TO [facility] IF THEY CAN STAY WITH HER, WHICH THEY CAN NOT BECAUSE ROOMS ARE SEMI PRIVATE. CM WILL FOLLOW AND ASSIST NEEDED WITH DC PLANNING/NEEDS. Organic Extractions Technician: Beena Randle DCP- Discharge Planning Updated by [id number]: Beena Randle on 11/18/19 3:[address] Patient Name: MELQUIADES ROMAN Admission Status: ER Accout number: [id number] Admission Date: 11-12-2019 : 1940 Admission Diagnosis:DISPLACED INTERTROCHANTERIC FRACTURE OF LEFT FEMUR, INI Attending: GULSHAN GONCALVES Current LOS: 6 Anticipated DC Date: Planned Disposition: Home with Hospice Primary Insurance: [employer] MEDICARE ADV Discharge Planning Comments: CM MET WITH PATIENT'S DAUGHTER AND . THEY WOULD LIKE [facility] IF ONE OF THEM COULD STAY WITH HER 05/12. I TOLD THEM I DIDN'T THINK THEY COULD STAY 24 HRS. A DAY BUT I WOULD CHECK WITH [facility]. SPOKE WITH AHMET AND ROOMS ARE SEMI PRIVATE THEREFORE NO OVERNIGHT STAYS. THEY DO HAVE VISITING HOURS THROUGHOUT THE DAY. I WILL CONTACT FAMILY TO LET THEM KNOW AND SEE THE NEXT PLAN. Organic Extractions Technician: Beena Randle DCP- Discharge Planning Updated by [email or web address]: Lara Robertson on 11/16/19 3:[address] Patient Name: MELQUIADES ROMAN Admission Status: ER Accout number: [id number] Admission Date: 11-12-2019 : 1940 Admission Diagnosis:DISPLACED INTERTROCHANTERIC FRACTURE OF LEFT FEMUR, INI Attending: GULSHAN GONCALVES Current LOS: 4 Anticipated DC Date: Planned Disposition: Home with Hospice Primary Insurance: [employer] MEDICARE ADV Discharge Planning Comments: CM met with patient's daughter at bedside to complete initial dc planning assessment. CM educated patient on the CM role and verbal consent given by patient to complete assessment. Patient lives at home with family. Patient's spouse and two daughters live with her. Patient was partially dependent upon admission was able to ambulate but with her dementia had to have assistance with other ADL'S. At discharge patient's family plans for her to return home and feels this is a safe discharge. CM discussed availability of home health, rehab services, and medical equipment. CM spoke to daughter regarding hospice v/s home health. Daughter stated that her father was speaking to the insurance company to see what they can provide / what is covered. Family doesn't want patient to go to any facility that they can not stay with her. Patient may require ambulance transfer home since she isn't getting up. Uncertain of known discharge needs at this time. CM will continue to follow and will assist as needed with dc plans/needs. Organic Extractions Technician: Lara Robertson DCPIA - Discharge Planning Initial Assessment Updated by [id number]: Lara Robertson on 11/16/19 4:38 pm * Is the patient Alert and Oriented? No * PCP SORRELS * Pharmacy [facility] * Preadmission Environment Home with Family * ADLs Partial Dependent * Partial ADLs (Assistance needed) Ambulation Bathing Dressing Eating Medication Management Toileting Transfers * List name and contact numbers for known caregivers / representatives who currently or will assist patient after discharge: LEELEE ASH - DAUGHTER - [phone] TARA ROMAN - SPOUSE - [phone] * Verbal permission to speak to the caregivers and representatives has been obtained from the patient. Yes * Community resources currently utilized None * Additional services required to return to the preadmission environment? No * Can the patient safely return to the preadmission environment? Yes * Has this patient been hospitalized within the prior 30 days at any hospital? No Last DP export: 11/18/19 3:46 pm Patient Name: MELQUIADES ROMAN Page [id number] at 1759 All edits/amendments must be made on the electronic document DICTATION DATE: 11/18/191758 NAVAL SCIENCE TEACHER: MIKAYLA 11/18/191758 RPT#: [id number] DC DATE: STATUS: ADM IN [facility] [address] [place] [address] END OF REPORT
[2019-11-18 18:45] VITALS: BP 115/48
--- NOTE | 2019-11-18 18:50 | NUR ---
SLEEPING. WILL CONTINUE TO MONITOR.
[2019-11-18 20:00] VITALS: BP 152/59
--- NOTE | 2019-11-18 20:15 | NUR ---
CONFUSED. PULLING AT LINES. DAUGHTER AT BEDSIDE. RESP NONLABORED. O2 @3L/NC. DRSG NOTED TO LT HIP IS C/D/I. PUREWICK IN USE BUT PT HAS PULLED IT OFF. PADS CHANGED AT THIS TIME. ROGERIO ALARM ON. NS @ 30 MLHR INFUSING IN RT FOREARM. CL IN REACH.
[2019-11-19] VITALS (8 sets, daily range): BP systolic 153–179; BP diastolic 56–101
--- NOTE | 2019-11-19 03:36 | NUR ---
HAS BEEN AWAKE MOST OF NIGHT. LYING IN BED. RESTLESS AND PULLING AT THINGS. DAUGHTER AT BEDSIDE. NO DISTRESS. CL IN REACH.
--- NOTE | 2019-11-19 05:30 | NUR ---
PT CHECKED FOR INCONT. [employer]olan[employer][email or web address] IS WORKING PROPERLY. PT IS CLEAN AND DRY.
[2019-11-19 07:45] LABS: BASOPHILS 0.4 % (0-2); HEMATOCRIT 29.8 % (36.0-48.0); HEMOGLOBIN 9.3 g/dL (12-16); IMMATURE GRANULOCYTES 0.3 % (0-5); LYMPHOCYTES 41.3 % (15-50); MCH 32.9 pg (26.0-34.0); MCHC 31.2 g/dL (31.0-37.0); MCV 105.3 fL (80.0-100.0); MEAN PLATELET VOLUME 10.5 fL (7.4-10.4); MONOCYTES 6.8 % (2-11); NEUTROPHILS 50.2 % (40-80); PLATELET COUNT 245 10x3/uL (130-400); RBC 2.83 10x6/uL (4.00-5.40); RDW 17.4 % (11.5-14.5); WBC 10.5 10x3/uL (4.8-10.8)
[2019-11-19 07:57] LABS: ALBUMIN 2.2 g/dL (3.4-5.0); ANION GAP 10.2 mmol/L (8-16); BILIRUBIN - TOTAL 0.52 mg/dL (0.2-1.3); CARBON DIOXIDE 29.9 mmol/L (21.0-32.0); CREATININE - SERUM 1.2 mg/dL (0.6-1.3); POTASSIUM - SERUM 4.1 mmol/L (3.5-5.1); PROTEIN - SERUM 5.1 g/dL (6.4-8.2)
--- NOTE | 2019-11-19 10:11 | NUR ---
PT UPRIGHT IN BED SIDE CHAIR UPON ENTERING. ALERT BUT ORIENTED TO SELF ONLY. ADMINISTERED MEDICATION CRUSHED IN APPLE SAUCE. NO DIFFICULTIES. FAMILY IN ROOM. DENIES ANY NEEDS. WILL CONTINUE TO MONITOR. CHAIR ALARM IS ON AND FUNCTIONING.
--- NOTE | 2019-11-19 11:48 | NUR ---
OT NOTE: BED MOB WITH MAX ASSIST; SITTING BALANCE ON EOB WITH SBA; ABLE TO WASH HANDS WITH CLOTH WITH SET UP; MOD/MAX ASSIST WITH REMAINDER OF BATHING; MOD ASSIST WITH SIT TO STAND;MAX ASSIST TO TRANSFER DUE TO INABILITY TO FOLLOW COMMANDS FOR SITTING. ALARM PAD PLACED UNDER PT WITH CHAIR IN RECLINED POSITION. ROBBIE FARMER, OTR/L [phone]
--- NOTE | 2019-11-19 12:14 | NUR ---
BP RECHECK 153/65
--- NOTE | 2019-11-19 12:49 | NUR ---
Nutrition Follow-up: Diet: Regular + Ensure TID PO intake: 100% x last 4 meals; spoke with patient's daughter at bedside who states that patient is demented. States that patient has a good appetite. Last BM: last Monday per patient's daughter. Wt: 139# (11/13/19) Meds noted: NS@30. Labs noted: BUN 29(H), GFR 46(L), Ca 8.0(L), Alb 2.2(L) Recommend continue current diet. RD following.
--- NOTE | 2019-11-19 13:39 | NUR ---
I have reviewed this patient and I concur with the Shift Assessment completed by the Licensed Practical Nurse today this shift.
--- NOTE | 2019-11-19 16:34 | MORECARE ---
CASE MANAGEMENT DISCHARGE SUMMARY PATIENT: MELQUIADES ROMAN UNIT: [id number] ADM DATE: 11/12/19 AGE: 79 : 40 SEX: F ROOM/BED: D.2236 AUTHOR: MARVIN,DOC PHYSICIAN: REFERRING PHYSICIAN: GULSHAN GONCALVES MD DATE OF SERVICE: 11/19/19 Discharge Plan Patient Name: MELQUIADES ROMAN Facility: [facility]:[place] : 1940 Planned Disposition: Home with Hospice Anticipated Discharge Date: Discharge Date: Expected LOS: Initial Reviewer: [email or web address] Initial Review Date: 11/12/2019 Generated: 11/19/19 5:33 pm Comments DCP- Discharge Planning Updated by [id number]: Beena Randle on 11/19/19 3:[address] Patient Name: MELQUIADES ROMAN Admission Status: ER Accout number: [id number] Admission Date: 11-12-2019 : 1940 Admission Diagnosis:DISPLACED INTERTROCHANTERIC FRACTURE OF LEFT FEMUR, INI Attending: GULSHAN GONCALVES Current LOS: 7 Anticipated DC Date: Planned Disposition: Home with Hospice Primary Insurance: [employer] MEDICARE ADV Discharge Planning Comments: CM MET WITH THE PATIENT, DAUGHTER AND AGAIN TODAY. REFUSAL OF SERVICES SIGNED BY DAUGHTER. FAMILY WANTS TO TAKE HER HOME WHERE THEY CARE FOR HER. SHE HAS EQUIPMENT AT HOME. FAMILY DOES NOT WANT HH, REHAB, SNF OR HOSPICE. I HAVE DISCUSSED ALL OPTIONS WITH THEM. IMM SIGNED. CM WILL FOLLOW AND ASSIST NEEDED WITH DC PLANNING/NEEDS. Supervisor Locomotive: Beena Randle DCP- Discharge Planning Updated by [id number]: Beena Randle on 11/18/19 4:[address] Patient Name: MELQUIADES ROMAN Admission Status: ER Accout number: [id number] Admission Date: 11-12-2019 : 1940 Admission Diagnosis:DISPLACED INTERTROCHANTERIC FRACTURE OF LEFT FEMUR, INI Attending: GULSHAN GONCALVES Current LOS: 6 Anticipated DC Date: Planned Disposition: Home with Hospice Primary Insurance: [employer] MEDICARE ADV Discharge Planning Comments: FAMILY WOULD LIKE PATIENT TO GET A LITTLE STRONGER AND WHEN MEDICALLY STABLE DC TO HOME. THEY DO NOT WANT HH OR SNF AND WILL ONLY AGREE TO [facility] IF THEY CAN STAY WITH HER, WHICH THEY CAN NOT BECAUSE ROOMS ARE SEMI PRIVATE. CM WILL FOLLOW AND ASSIST NEEDED WITH DC PLANNING/NEEDS. Supervisor Locomotive: Beena Randle DCP- Discharge Planning Updated by [email or web address]: Beena Razia on 11/18/19 3:[address] Patient Name: MELQUIADES ROMAN Admission Status: ER Accout number: [id number] Admission Date: 11-12-2019 : 1940 Admission Diagnosis:DISPLACED INTERTROCHANTERIC FRACTURE OF LEFT FEMUR, INI Attending: GULSHAN GONCALVES Current LOS: 6 Anticipated DC Date: Planned Disposition: Home with Hospice Primary Insurance: [employer] MEDICARE ADV Discharge Planning Comments: CM MET WITH PATIENT'S DAUGHTER AND . THEY WOULD LIKE [facility] IF ONE OF THEM COULD STAY WITH HER 05/12. I TOLD THEM I DIDN'T THINK THEY COULD STAY 24 HRS. A DAY BUT I WOULD CHECK WITH [facility]. SPOKE WITH AHMET AND ROOMS ARE SEMI PRIVATE THEREFORE NO OVERNIGHT STAYS. THEY DO HAVE VISITING HOURS THROUGHOUT THE DAY. I WILL CONTACT FAMILY TO LET THEM KNOW AND SEE THE NEXT PLAN. Supervisor Locomotive: Beena Randle CTP- Discharge Planning Updated by [id number]: Lara Robertson on 11/16/19 3:[address] Patient Name: MELQUIADES ROMAN Admission Status: ER Accout number: [id number] Admission Date: 11-12-2019 : 1940 Admission Diagnosis:DISPLACED INTERTROCHANTERIC FRACTURE OF LEFT FEMUR, INI Attending: GULSHAN GONCALVES Current LOS: 4 Anticipated DC Date: Planned Disposition: Home with Hospice Primary Insurance: [employer] MEDICARE ADV Discharge Planning Comments: CM met with patient's daughter at bedside to complete initial dc planning assessment. CM educated patient on the CM role and verbal consent given by patient to complete assessment. Patient lives at home with family. Patient's spouse and two daughters live with her. Patient was partially dependent upon admission was able to ambulate but with her dementia had to have assistance with other ADL'S. At discharge patient's family plans for her to return home and feels this is a safe discharge. CM discussed availability of home health, rehab services, and medical equipment. CM spoke to daughter regarding hospice v/s home health. Daughter stated that her father was speaking to the insurance company to see what they can provide / what is covered. Family doesn't want patient to go to any facility that they can not stay with her. Patient may require ambulance transfer home since she isn't getting up. Uncertain of known discharge needs at this time. CM will continue to follow and will assist as needed with dc plans/needs. Supervisor Locomotive: Lara Robertson DCPIA - Discharge Planning Initial Assessment Updated by [email or web address]: Lara Robertson on 11/16/19 4:38 pm * Is the patient Alert and Oriented? No * PCP SORRELS * Pharmacy [facility] * Preadmission Environment Home with Family * ADLs Partial Dependent * Partial ADLs (Assistance needed) Ambulation Bathing Dressing Eating Medication Management Toileting Transfers * List name and contact numbers for known caregivers / representatives who currently or will assist patient after discharge: LEELEE ASH - DAUGHTER - [phone] TARA ROMAN - SPOUSE - [phone] * Verbal permission to speak to the caregivers and representatives has been obtained from the patient. Yes * Community resources currently utilized None * Additional services required to return to the preadmission environment? No * Can the patient safely return to the preadmission environment? Yes * Has this patient been hospitalized within the prior 30 days at any hospital? No Coverage Notice Reviewer: [email or web address] Jacek Randle Notice Issued Date-Time: 11/19/2019 16:27 Notice Type: IM Discharge Notice Notice Delivered To: Family Member Relationship to Patient: Glove Presser Name: POONAM PÉREZ Delivery Method: HAND - Hand Delivered Yacny Days: Prior Verbal Notification: Recipient Understood Notice: Yes Recipient Signature: Yes Med Rec Note Co-signed by Attending: Coverage Notice Comment: Reviewer: [id number] Jacek Randle Notice Issued Date-Time: 11/19/2019 16:27 Notice Type: Patient Choice Letter Notice Delivered To: Family Member Relationship to Patient: Glove Presser Name: POONAM PÉREZ Delivery Method: HAND - Hand Delivered Yancy Days: Prior Verbal Notification: Recipient Understood Notice: Yes Recipient Signature: Yes Med Rec Note Co-signed by Attending: Coverage Notice Comment: SIGNED REFUSAL FOR HH, [facility] AND REHAB Last DP export: 11/18/19 4:59 pm Patient Name: MELQUIADES ROMAN Page 24213 at 1634 All edits/amendments must be made on the electronic document DICTATION DATE: 11/19/191633 MAGNAFLUX OPERATOR: MIKAYLA 11/19/19 163 RPT#: [id number] DC DATE: STATUS: ADM IN [facility] [address] [place] [address] END OF REPORT
--- NOTE | 2019-11-19 17:51 | NUR ---
ADMINISTERED CRUSHED MEDICATIONS IN APPLE SAUCE, NO DIFFICULTIES. FAMILY AT BEDSIDE. DENIES ANY NEEDS. BED IN LOWEST POSITION, BED RAILS X2, CALL LIGHT WITHIN REACH. WILL CONTINUE TO MONITOR.
--- NOTE | 2019-11-19 19:07 | NUR ---
PT RESTING COMFORTABLY IN BED, FAMILY AT BEDSIDE. DENIES ANY NEEDS. BED IN LOWEST POSITION, BED RAILS X2, CALL LIGHT WITHIN REACH, ROGERIO ALARM ON. PASSING PT TO CUSTOMER CONTACT SALES ASSOCIATE.
--- NOTE | 2019-11-19 19:32 | NUR ---
OT NOTE: PT COMPLETED BUE AAROM TOLERATED. PT COMPLETED FACE AND HAND HYGIENE WITH PARIS Tomas. PT IS UNABLE TO SEQUENCE SIMPLE TASKS WITHOUT PHYSICAL ASSISTANCE. PT IS UNABLE TO IDENTIFY COMMON OBJECTS AND USE. PT WAS UABLE TO INDENTIFY BATHCLOTH AND COULD NOT EXHIBIT ITS FUNCTIONAL USE. [phone] THANK YOU,NIALL WYNNE
--- NOTE | 2019-11-19 20:25 | NUR ---
PTS DAUGHTER TRYING TO KEEP PT FROM PULLING IV OUT. PT HAS PULLED PUREWICK OFF AND SATURATED BED WITH URINE. COMPLETE LINEN CHANGE DONE AT THIS TIME. PT ORIENTED TO SELF ONLY. CONFUSED AND AGITATED. PTS DAUGHTER REQUESTS ATIVAN AND PT WAS GIVEN ATIVAN AT THIS TIME. RESP NONLABORED. O2 @ 3L/NC. DRSG NOTED TO LT HIP IS C/D/I. ROGERIO ALARM ON. NS @ 30 ML/HR INFUSING IN RT FOREARM. SCDS IN USE BILAT. SR ELEVATED X2. CL IN REACH.
[2019-11-20] VITALS: BP 104/62
--- NOTE | 2019-11-20 03:29 | NUR ---
HAS RESTED WELL TONIGHT AFTER RECEIVING ATIVAN. DAUGHTER AT BEDSIDE. CL IM REACH
[2019-11-20 04:00] VITALS: BP 150/47
[2019-11-20 05:16] LABS: BASOPHILS 0.1 % (0-2); HEMATOCRIT 28.2 % (36.0-48.0); HEMOGLOBIN 8.9 g/dL (12-16); IMMATURE GRANULOCYTES 0.4 % (0-5); LYMPHOCYTES 38.6 % (15-50); MCH 33.1 pg (26.0-34.0); MCHC 31.6 g/dL (31.0-37.0); MCV 104.8 fL (80.0-100.0); MEAN PLATELET VOLUME 10.4 fL (7.4-10.4); MONOCYTES 7.7 % (2-11); NEUTROPHILS 52.2 % (40-80); PLATELET COUNT 258 10x3/uL (130-400); RBC 2.69 10x6/uL (4.00-5.40); RDW 17.1 % (11.5-14.5)
[2019-11-20 05:37] LABS: ALBUMIN 2.1 g/dL (3.4-5.0); ANION GAP 10.4 mmol/L (8-16); BILIRUBIN - TOTAL 0.46 mg/dL (0.2-1.3); CALCIUM 8.3 mg/dL (8.5-10.1); CARBON DIOXIDE 27.5 mmol/L (21.0-32.0); CREATININE - SERUM 1.2 mg/dL (0.6-1.3); POTASSIUM - SERUM 3.9 mmol/L (3.5-5.1); PROTEIN - SERUM 5.5 g/dL (6.4-8.2)
--- NOTE | 2019-11-20 07:50 | NUR ---
RECIEVED PT FROM CABLE PULLER. UPON ENTERING PT IN BED WITH EYES CLOSED, BREATHING EVEN AND UNLABORED. NO S/S OF DISTRESS NOTED AT THIS TIME, FAMILY AT BEDSIDE. RIGHT FOREARM WITH NS @ 30, 3L O2 VIA NC, ELECTROLYTE PROTOCOL, CRUSHED MEDS, PUREWICK. POST OP DAY 8 OF THE LEFT HIP. PT HAS DEMENTIA AND IS CONFUSED X3. ONLY AWARE OF SELF. BED IN LOWEST POSITION, BED RAILS X2, CALL LIGHT WITHIN REACH, BED ALARM ON AND FUNCTIONING. WILL CONTINUE TO MONITOR.
[2019-11-20 08:38] VITALS: BP 174/52
--- NOTE | 2019-11-20 09:52 | NUR ---
PT IN BEDSIDE CHAIR, FAMILY AT BEDSIDE.ADMINISTERED MORNING MEDICATION, NO DIFFICULTIES. DENIES ANY NEEDS. PT HAS CHAIR ALARM, ON AND FUNCTIONING. WILL CONTINUE TO MONITOR.
[2019-11-20 12:41] VITALS: BP 152/50
--- NOTE | 2019-11-20 13:55 | NUR ---
OT NOTE: HAD EXTENSIVE ASSIST AVAILABLE FOR ATTEMPTS AT AMBULATION TODAY. PT WAS LETHARGIC AND DTR REPORTED THAT SHE HAD AN ATIVAN LAST NIGHT. PT DIFFICULT TO AROUSE HOWEVER, ONCE UP AND ON EOB, SHE WAS ALERT.. MOD ASSIST X 2 FOR SUPINE TO SIT; MOD ASSIST X 2 FOR SIT TO STAND.. PT WITH POOR BALANCE, HOWEVER, ONCE THERAPIST GOT PTS WEIGHT FORWARD, SHE WAS ABLE TO STAND WITH MIN ASSIST AND USE OF WALKER..ABLE TO AMB APPROX 10-12 FT WITH MIN/MOD ASSIST X 2 AND ASSISTANCE WITH IV POLE.. CHAIR HAD TO BE PULLED UP BEHIND PT DUE TO PAIN AND WEAKNESS.. PT TOLERATED SITTING UP IN RECLINER FOR GREATER THAN 4 HRS..DTR ASSISTED WITH TMT SESSION BY HELPING ENCOURAGE PT TO WALK. DUE TO ADVANCED DEMENTIA, PT IS VERY CONFUSED AND UNABLE TO FOLLOW MOST COMMANDS. WILL CONT CURRENT TMT. ROBBIE FARMER, OTR/L [phone]
[2019-11-20] MEDS ORDERED: DONEPEZIL HCL10 MG PO (15:19)
[2019-11-20] MEDS ORDERED: ELIQUIS2.5 MG PO (15:19)
[2019-11-20 17:00] VITALS: BP 166/52
--- NOTE | 2019-11-20 17:14 | MORECARE ---
CASE MANAGEMENT DISCHARGE SUMMARY PATIENT: MELQUIADES ROMAN UNIT: [id number] ADM DATE: 11/12/19 AGE: 79 : 40 SEX: F ROOM/BED: D.2236 AUTHOR: MARVIN,DOC PHYSICIAN: REFERRING PHYSICIAN: GULSHAN GONCALVES MD DATE OF SERVICE: 11/20/19 Discharge Plan Patient Name: MELQUIADES ROMAN Facility: [facility]:[place] : 1940 Planned Disposition: Home with Hospice Anticipated Discharge Date: Discharge Date: Expected LOS: Initial Reviewer: [id number] Initial Review Date: 11/12/2019 Generated: 11/20/19 6:13 pm Comments DCP- Discharge Planning Updated by [id number]: Beena Razia on 11/20/19 4:[address] Patient Name: MELQUIADES ROMAN Admission Status: ER Accout number: [id number] Admission Date: 11-12-2019 : 1940 Admission Diagnosis:DISPLACED INTERTROCHANTERIC FRACTURE OF LEFT FEMUR, INI Attending: GULSHAN GONCALVES Current LOS: 8 Anticipated DC Date: Planned Disposition: Home with Hospice Primary Insurance: [employer] ADV Discharge Planning Comments: SPOKE WITH PATIENTS DAUGHTER ELISA, AND THE RAMP WILL BE READY AT THEIR HOUSE TOMORROW. STATES WOULD BE BETTER FOR DC FIRST THING IN MORNING SO THEY CAN GET HER IN THE HOUSE. CM TO FOLLOW AND ASSIST NEEDED. Dressmaker Garment Fitter: Beena Randle DCP- Discharge Planning Updated by [id number]: Beena Razia on 11/19/19 3:[address] Patient Name: MELQUIADES ROMAN Admission Status: ER Accout number: [id number] Admission Date: 11-12-2019 : 1940 Admission Diagnosis:DISPLACED INTERTROCHANTERIC FRACTURE OF LEFT FEMUR, INI Attending: GULSHAN GONCALVES Current LOS: 7 Anticipated DC Date: Planned Disposition: Home with Hospice Primary Insurance: [employer] ADV Discharge Planning Comments: CM MET WITH THE PATIENT, DAUGHTER AND AGAIN TODAY. REFUSAL OF SERVICES SIGNED BY DAUGHTER. FAMILY WANTS TO TAKE HER HOME WHERE THEY CARE FOR HER. SHE HAS EQUIPMENT AT HOME. FAMILY DOES NOT WANT HH, REHAB, SNF OR HOSPICE. I HAVE DISCUSSED ALL OPTIONS WITH THEM. IMM SIGNED. CM WILL FOLLOW AND ASSIST NEEDED WITH DC PLANNING/NEEDS. Dressmaker Garment Fitter: Beena Randle DCP- Discharge Planning Updated by [id number]: Beena Razia on 11/18/19 4:[address] Patient Name: MELQUIADES ROMAN Admission Status: ER Accout number: [id number] Admission Date: 11-12-2019 : 1940 Admission Diagnosis:DISPLACED INTERTROCHANTERIC FRACTURE OF LEFT FEMUR, INI Attending: GULSHAN GONCALVES Current LOS: 6 Anticipated DC Date: Planned Disposition: Home with Hospice Primary Insurance: [employer] ADV Discharge Planning Comments: FAMILY WOULD LIKE PATIENT TO GET A LITTLE STRONGER AND WHEN MEDICALLY STABLE DC TO HOME. THEY DO NOT WANT HH OR SNF AND WILL ONLY AGREE TO [facility] IF THEY CAN STAY WITH HER, WHICH THEY CAN NOT BECAUSE ROOMS ARE SEMI PRIVATE. CM WILL FOLLOW AND ASSIST NEEDED WITH DC PLANNING/NEEDS. Dressmaker Garment Fitter: Beena Randle DCP- Discharge Planning Updated by [id number]: Beena Razia on 11/18/19 3:[address] Patient Name: MELQUIADES ROMAN Admission Status: ER Accout number: [id number] Admission Date: 11-12-2019 : 1940 Admission Diagnosis:DISPLACED INTERTROCHANTERIC FRACTURE OF LEFT FEMUR, INI Attending: GULSHAN GONCALVES Current LOS: 6 Anticipated DC Date: Planned Disposition: Home with Hospice Primary Insurance: [employer] ADV Discharge Planning Comments: CM MET WITH PATIENT'S DAUGHTER AND . THEY WOULD LIKE [facility] IF ONE OF THEM COULD STAY WITH HER 24/. I TOLD THEM I DIDN'T THINK THEY COULD STAY 24 HRS. A DAY BUT I WOULD CHECK WITH [facility]. SPOKE WITH AHMET AND ROOMS ARE SEMI PRIVATE THEREFORE NO OVERNIGHT STAYS. THEY DO HAVE VISITING HOURS THROUGHOUT THE DAY. I WILL CONTACT FAMILY TO LET THEM KNOW AND SEE THE NEXT PLAN. Dressmaker Garment Fitter: Beena Randle DCP- Discharge Planning Updated by [id number]: Lara Robertson on 11/16/19 3:[address] Patient Name: MELQUIADES ROMAN Admission Status: ER Accout number: [id number] Admission Date: 11-12-2019 : 1940 Admission Diagnosis:DISPLACED INTERTROCHANTERIC FRACTURE OF LEFT FEMUR, INI Attending: GULSHAN GONCALVES Current LOS: 4 Anticipated DC Date: Planned Disposition: Home with Hospice Primary Insurance: [employer] ADV Discharge Planning Comments: CM met with patient's daughter at bedside to complete initial dc planning assessment. CM educated patient on the CM role and verbal consent given by patient to complete assessment. Patient lives at home with family. Patient's spouse and two daughters live with her. Patient was partially dependent upon admission was able to ambulate but with her dementia had to have assistance with other ADL'S. At discharge patient's family plans for her to return home and feels this is a safe discharge. CM discussed availability of home health, rehab services, and medical equipment. CM spoke to daughter regarding hospice v/s home health. Daughter stated that her father was speaking to the insurance company to see what they can provide / what is covered. Family doesn't want patient to go to any facility that they can not stay with her. Patient may require ambulance transfer home since she isn't getting up. Uncertain of known discharge needs at this time. CM will continue to follow and will assist as needed with dc plans/needs. Dressmaker Garment Fitter: Lara Robertson DCPIA - Discharge Planning Initial Assessment Updated by [id number]: Lara Robertson on 11/16/19 4:38 pm * Is the patient Alert and Oriented? No * PCP SORRELS * Pharmacy [facility] * Preadmission Environment Home with Family * ADLs Partial Dependent * Partial ADLs (Assistance needed) Ambulation Bathing Dressing Eating Medication Management Toileting Transfers * List name and contact numbers for known caregivers / representatives who currently or will assist patient after discharge: LEELEE ASH - DAUGHTER - [phone] TARA ROMAN - SPOUSE - [phone] * Verbal permission to speak to the caregivers and representatives has been obtained from the patient. Yes * Community resources currently utilized None * Additional services required to return to the preadmission environment? No * Can the patient safely return to the preadmission environment? Yes * Has this patient been hospitalized within the prior 30 days at any hospital? No Coverage Notice Reviewer: [id number] Jacek Randle Notice Issued Date-Time: 11/19/2019 16:27 Notice Type: IM Discharge Notice Notice Delivered To: Family Member Relationship to Patient: Paleology Teacher Name: POONAM PÉREZ Delivery Method: HAND - Hand Delivered Yancy Days: Prior Verbal Notification: Recipient Understood Notice: Yes Recipient Signature: Yes Med Rec Note Co-signed by Attending: Coverage Notice Comment: Reviewer: [id number] - Beena Randle Notice Issued Date-Time: 11/19/2019 16:27 Notice Type: Patient Choice Letter Notice Delivered To: Family Member Relationship to Patient: Paleology Teacher Name: POONAM PÉREZ Delivery Method: HAND - Hand Delivered Yancy Days: Prior Verbal Notification: Recipient Understood Notice: Yes Recipient Signature: Yes Med Rec Note Co-signed by Attending: Coverage Notice Comment: SIGNED REFUSAL FOR HH, [facility] AND REHAB Last DP export: 11/19/19 3:34 pm Patient Name: MELQUIADES ROMAN Page [id number] at 1714 All edits/amendments must be made on the electronic document DICTATION DATE: 11/20/191712 MYCOLOGY TEACHER: MIKAYLA 11/20/191712 RPT#: [id number] DC DATE: STATUS: ADM IN [place] [address] [place] [address] END OF REPORT
--- NOTE | 2019-11-20 18:04 | NUR ---
ADMINISTERED MEDICATION AT THIS TIME, NO DIFFICULTIES. PT FAMILY AT BEDSIDE ASSISTING WITH FEEDING. WILL DO A COMPLETE BED CHANGE AFTER PT HAS EATEN DINNER. DENIES ANY OTHER NEEDS. BED IN LOWEST POSITION, BED RAILS X2, CALL LIGHT WITHIN REACH, BED ALARM ON AND FUNCTIONING. WILL CONTINUE TO MONITOR.
--- NOTE | 2019-11-20 18:08 | NUR ---
OT NOTE: PT COMPLETED POSITIONING WITH MAX A. PT COMPLETED FACE HYGIENE WITH MOD A. PT COMPLETED UE AAROM TOLERATED. [phone] THANK YOU,NIALL WYNNE
--- NOTE | 2019-11-20 19:08 | NUR ---
I have reviewed this patient and I concur with the Shift Assessment completed by the Licensed Practical Nurse today this shift.
[2019-11-20 20:00] VITALS: BP 129/52
--- NOTE | 2019-11-20 20:46 | NUR ---
ADMINISTERED PRN ATIVAN FOR ANXIETY PER REQUEST BY FAMILY MEMBER. FAMILY AT BEDSIDE. DENIES ANY OTHER NEEDS. BED IN LOWEST POSITION, BED RAILS X2, CALL LIGHT WITHIN REACH. BED ALARM ON AND FUNTIONAL. WILL CONTINUE TO MONITOR.
[2019-11-21] VITALS: BP 142/52
[2019-11-21 04:00] VITALS: BP 153/59
--- NOTE | 2019-11-21 04:54 | NUR ---
HAS BEEN TURNED EVERY 2 HOURS THIS SHIFT. PUREWICK HAS REMAINED IN PLACE AND WORKING. DAUGHTER AT BEDSIDE. DRESSING TO LEFT GROIN/HIP REGION REMAINS CLEAN DRY AND INTACT. FALL PRECAUTIONS REMAIN IN PLACE. CALL LIGHT IN REACH
[2019-11-21 06:01] LABS: BASOPHILS 0.3 % (0-2); EOSINOPHILS 1.2 % (0-7); HEMATOCRIT 27.1 % (36.0-48.0); HEMOGLOBIN 8.5 g/dL (12-16); IMMATURE GRANULOCYTES 0.2 % (0-5); LYMPHOCYTES 38.4 % (15-50); MCH 33.1 pg (26.0-34.0); MCHC 31.4 g/dL (31.0-37.0); MCV 105.4 fL (80.0-100.0); MEAN PLATELET VOLUME 10.1 fL (7.4-10.4); MONOCYTES 7.2 % (2-11); NEUTROPHILS 52.7 % (40-80); PLATELET COUNT 256 10x3/uL (130-400); RBC 2.57 10x6/uL (4.00-5.40); RDW 17.3 % (11.5-14.5); WBC 11.1 10x3/uL (4.8-10.8)
[2019-11-21 06:38] LABS: ALBUMIN 2.1 g/dL (3.4-5.0); ANION GAP 7.5 mmol/L (8-16); BILIRUBIN - TOTAL 0.47 mg/dL (0.2-1.3); CALCIUM 7.7 mg/dL (8.5-10.1); CARBON DIOXIDE 29.5 mmol/L (21.0-32.0); CREATININE - SERUM 1.2 mg/dL (0.6-1.3); PROTEIN - SERUM 5.3 g/dL (6.4-8.2)
[2019-11-21 08:00] VITALS: BP 150/87
--- NOTE | 2019-11-21 11:51 | NUR ---
LYING IN BED,WITHOUT DISTRESS. FAMILY AT BEDSIDE
[2019-11-21 12:00] VITALS: BP 127/67
--- NOTE | 2019-11-21 14:41 | NUR ---
OT NOTE: PT COMPLETED BUE AAROM . PT COMPLETED FACE HYGIENE WITH MOD A. PT REQUIRED EXTENSIVE VERBAL CUES. [phone] THANK YOU,NIALL WYNNE
--- NOTE | 2019-11-23 09:29 | MORECARE ---
CASE MANAGEMENT DISCHARGE SUMMARY PATIENT: MELQUIADES ROMAN UNIT: [id number] ADM DATE: 11/12/19 AGE: 79 : 40 SEX: F ROOM/BED: D.2236 AUTHOR: MEGHAN WONG PHYSICIAN: REFERRING PHYSICIAN: GULSHAN GONCALVES MD DATE OF SERVICE: 11/23/19 Discharge Plan Patient Name: MELQUIADES ROMAN Facility: [facility]:[place] : 1940 Planned Disposition: Home with Hospice Anticipated Discharge Date: Discharge Date: 11/21/2019 Expected LOS: Initial Reviewer: [id number] Initial Review Date: 11/12/2019 Generated: 11/23/19 10:29 am Comments DCP- Discharge Planning Updated by [id number]: Beena Razia on 11/20/19 4:[address] Patient Name: MELQUIADES ROMAN Admission Status: ER Accout number: [id number] Admission Date: 11-12-2019 : 1940 Admission Diagnosis:DISPLACED INTERTROCHANTERIC FRACTURE OF LEFT FEMUR, INI Attending: GULSHAN GONCALVES Current LOS: 8 Anticipated DC Date: Planned Disposition: Home with Hospice Primary Insurance: [employer] ADV Discharge Planning Comments: SPOKE WITH PATIENTS DAUGHTER ELISA, AND THE RAMP WILL BE READY AT THEIR HOUSE TOMORROW. STATES WOULD BE BETTER FOR DC FIRST THING IN MORNING SO THEY CAN GET HER IN THE HOUSE. CM TO FOLLOW AND ASSIST NEEDED. Sock Turner: Beena Randle DCP- Discharge Planning Updated by [id number]: Beena Randle on 11/19/19 3:[address] Patient Name: MELQUIADES ROMAN Admission Status: ER Accout number: [id number] Admission Date: 11-12-2019 : 1940 Admission Diagnosis:DISPLACED INTERTROCHANTERIC FRACTURE OF LEFT FEMUR, INI Attending: GULSHAN GONCALVES Current LOS: 7 Anticipated DC Date: Planned Disposition: Home with Hospice Primary Insurance: [employer] ADV Discharge Planning Comments: CM MET WITH THE PATIENT, DAUGHTER AND AGAIN TODAY. REFUSAL OF SERVICES SIGNED BY DAUGHTER. FAMILY WANTS TO TAKE HER HOME WHERE THEY CARE FOR HER. SHE HAS EQUIPMENT AT HOME. FAMILY DOES NOT WANT HH, REHAB, SNF OR HOSPICE. I HAVE DISCUSSED ALL OPTIONS WITH THEM. IMM SIGNED. CM WILL FOLLOW AND ASSIST NEEDED WITH DC PLANNING/NEEDS. Sock Turner: Beena Randle DCP- Discharge Planning Updated by [id number]: Beena Razia on 11/18/19 4:[address] Patient Name: MELQUIADES ROMAN Admission Status: ER Accout number: [id number] Admission Date: 11-12-2019 : 1940 Admission Diagnosis:DISPLACED INTERTROCHANTERIC FRACTURE OF LEFT FEMUR, INI Attending: GULSHAN GONCALVES Current LOS: 6 Anticipated DC Date: Planned Disposition: Home with Hospice Primary Insurance: [employer] ADV Discharge Planning Comments: FAMILY WOULD LIKE PATIENT TO GET A LITTLE STRONGER AND WHEN MEDICALLY STABLE DC TO HOME. THEY DO NOT WANT HH OR SNF AND WILL ONLY AGREE TO [facility] IF THEY CAN STAY WITH HER, WHICH THEY CAN NOT BECAUSE ROOMS ARE SEMI PRIVATE. CM WILL FOLLOW AND ASSIST NEEDED WITH DC PLANNING/NEEDS. Sock Turner: Beena Randle DCP- Discharge Planning Updated by [id number]: Beena Razia on 11/18/19 3:[address] Patient Name: MELQUIADES ROMAN Admission Status: ER Accout number: [id number] Admission Date: 11-12-2019 : 1940 Admission Diagnosis:DISPLACED INTERTROCHANTERIC FRACTURE OF LEFT FEMUR, INI Attending: GULSHAN GONCALVES Current LOS: 6 Anticipated DC Date: Planned Disposition: Home with Hospice Primary Insurance: [employer] ADV Discharge Planning Comments: CM MET WITH PATIENT'S DAUGHTER AND . THEY WOULD LIKE [facility] IF ONE OF THEM COULD STAY WITH HER 05/12. I TOLD THEM I DIDN'T THINK THEY COULD STAY 24 HRS. A DAY BUT I WOULD CHECK WITH [facility]. SPOKE WITH AHMET AND ROOMS ARE SEMI PRIVATE THEREFORE NO OVERNIGHT STAYS. THEY DO HAVE VISITING HOURS THROUGHOUT THE DAY. I WILL CONTACT FAMILY TO LET THEM KNOW AND SEE THE NEXT PLAN. Sock Turner: Beena Randle DCP- Discharge Planning Updated by [id number]: Lara Robertson on 11/16/19 3:[address] Patient Name: MELQUIADES ROMAN Admission Status: ER Accout number: [id number] Admission Date: 11-12-2019 : 1940 Admission Diagnosis:DISPLACED INTERTROCHANTERIC FRACTURE OF LEFT FEMUR, INI Attending: GULSHAN GONCALVES Current LOS: 4 Anticipated DC Date: Planned Disposition: Home with Hospice Primary Insurance: [employer] ADV Discharge Planning Comments: CM met with patient's daughter at bedside to complete initial dc planning assessment. CM educated patient on the CM role and verbal consent given by patient to complete assessment. Patient lives at home with family. Patient's spouse and two daughters live with her. Patient was partially dependent upon admission was able to ambulate but with her dementia had to have assistance with other ADL'S. At discharge patient's family plans for her to return home and feels this is a safe discharge. CM discussed availability of home health, rehab services, and medical equipment. CM spoke to daughter regarding hospice v/s home health. Daughter stated that her father was speaking to the insurance company to see what they can provide / what is covered. Family doesn't want patient to go to any facility that they can not stay with her. Patient may require ambulance transfer home since she isn't getting up. Uncertain of known discharge needs at this time. CM will continue to follow and will assist as needed with dc plans/needs. Sock Turner: Lara Robertson DCPIA - Discharge Planning Initial Assessment Updated by [email or web address]: Lara Robertson on 11/16/19 4:38 pm * Is the patient Alert and Oriented? No * PCP SORRELS * Pharmacy [facility] * Preadmission Environment Home with Family * ADLs Partial Dependent * Partial ADLs (Assistance needed) Ambulation Bathing Dressing Eating Medication Management Toileting Transfers * List name and contact numbers for known caregivers / representatives who currently or will assist patient after discharge: LEELEE ASH - DAUGHTER - [phone] TARA ROMAN - SPOUSE - [phone] * Verbal permission to speak to the caregivers and representatives has been obtained from the patient. Yes * Community resources currently utilized None * Additional services required to return to the preadmission environment? No * Can the patient safely return to the preadmission environment? Yes * Has this patient been hospitalized within the prior 30 days at any hospital? No Coverage Notice Reviewer: [id number] Jacek Randle Notice Issued Date-Time: 11/19/2019 16:27 Notice Type: IM Discharge Notice Notice Delivered To: Family Member Relationship to Patient: Security Installer Name: POONAM PÉREZ Delivery Method: HAND - Hand Delivered Yancy Days: Prior Verbal Notification: Recipient Understood Notice: Yes Recipient Signature: Yes Med Rec Note Co-signed by Attending: Coverage Notice Comment: Reviewer: [id number] Jacek Randle Notice Issued Date-Time: 11/19/2019 16:27 Notice Type: Patient Choice Letter Notice Delivered To: Family Member Relationship to Patient: Security Installer Name: POONAM PÉREZ Delivery Method: HAND - Hand Delivered Yancy Days: Prior Verbal Notification: Recipient Understood Notice: Yes Recipient Signature: Yes Med Rec Note Co-signed by Attending: Coverage Notice Comment: SIGNED REFUSAL FOR HH, [facility]PR[facility] AND REHAB Last DP export: 11/20/19 4:14 pm Patient Name: MELQUIADES ROMAN Page 10795 at 0929 All edits/amendments must be made on the electronic document DICTATION DATE: 11/23/19928 ZINC ETCHER: MIKAYLA 11/23/19928 RPT#: [id number] DC DATE:11/21/19 STATUS: DIS IN [facility] [address] [place] [address] END OF REPORT
== END 2019-11-21 15:14 | disposition home or self-care (01) | DRG 516 ==
LOC: D.ER 04:42 → D.MS 05:59
PROVIDERS: Family Medicine; Family Medicine Adult Medicine; Orthopaedic Surgery; ADMIT Family Medicine; ATTEND Family Medicine
PROC: 0SU Lower Joints, Supplement (ICD-10-PCS; principal; 2019-11-12 15:30)
DX: S72.142A Displaced intertrochanteric fracture of left femur, initial encounter for closed fracture (principal); N17.9 Acute kidney failure, unspecified; N39.0 Urinary tract infection, site not specified; W19.XXXA Unspecified fall, initial encounter; Y92.009 Unspecified place in unspecified non-institutional (private) residence as the place of occurrence of the external cause; I10 Essential (primary) hypertension; J44.9 Chronic obstructive pulmonary disease, unspecified; J45.909 Unspecified asthma, uncomplicated; F03.90 Unspecified dementia, unspecified severity, without behavioral disturbance, psychotic disturbance, mood disturbance, and anxiety; F41.9 Anxiety disorder, unspecified; M19.90 Unspecified osteoarthritis, unspecified site